=== PATIENT | female | born 1965 | race Caucasian/White ===

== ENCOUNTER 2018-09-11 09:04 | Day surgery (SDC) | payer OTHER ==
[2018-09-11] MEDS ORDERED: FENTAnyl 50 MCG/ML VIAL (10:43)
[2018-09-11] MEDS ORDERED: MIDAZOLAM 1 MG/ML 2 ML INJ ×3 (10:43)
== END 2018-09-11 11:42 | disposition home or self-care (01) ==
LOC: GIL 09:04
DX: Z12.11 Encounter for screening for malignant neoplasm of colon (principal); K64.4 Residual hemorrhoidal skin tags
CPT/HCPCS: 45378; 84703